=== PATIENT | male | born 1980 | race Caucasian/White ===

== ENCOUNTER → 2022-11-14 | Day surgery (SDC) | payer BC ==
[~2022-11-14] MED LIST: Glycopyrrolate 0.2 MG/ML SDV ONE; Propofol 200 MG/20 ML SDV ONE
[2022-11-14] MEDS: Lactated Ringers 1,000 ML IV SCH (09:23)
== END ==
LOC: CC.SDS 08:56
PROVIDERS: ATTEND Family Medicine
DX: K29.50 Unspecified chronic gastritis without bleeding (principal); C13.9 Malignant neoplasm of hypopharynx, unspecified; K31.9 Disease of stomach and duodenum, unspecified; S81.802A Unspecified open wound, left lower leg, initial encounter; S43.439A Superior glenoid labrum lesion of unspecified shoulder, initial encounter; R20.0 Anesthesia of skin; R53.1 Weakness; F17.210 Nicotine dependence, cigarettes, uncomplicated; Y92.39 Other specified sports and athletic area as the place of occurrence of the external cause
CPT/HCPCS: 00731; 87081; J2704; J3490; J7120